=== PATIENT | male | born 1995 | race Two or more races ===

== ENCOUNTER 2025-08-11 15:04 | Emergency (ER) | payer MEDICAID, OTHER ==
[~2025-08-11] VITALS: Ht 180.3 cm; Wt 101.5 kg
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
[2025-08-11 17:24] VITALS: BP 135/91; PULSE 62; RESP 18; O2SAT 100
[2025-08-11] MEDS: METOCLOPRAMIDE HCL 10 MG TAB PO ONE (18:39)
[2025-08-11 18:40] VITALS: TEMP 97.8
[2025-08-11] MEDS: ACETAMINOPHEN 325 MG TAB PO ONE (18:40)
== END 2025-08-11 19:12 | disposition home or self-care (01) ==
LOC: ER 15:04
DX: S06.0X0A Concussion without loss of consciousness, initial encounter (principal); S00.12XA Contusion of left eyelid and periocular area, initial encounter; V89.2XXA Person injured in unspecified motor-vehicle accident, traffic, initial encounter; Y93.89 Activity, other specified; Y92.89 Other specified places as the place of occurrence of the external cause; Y99.8 Other external cause status
CPT/HCPCS: 99283; J8597